=== PATIENT | male | born 1950 | race Caucasian/White ===

== ENCOUNTER → 2022-12-26 12:36 | Outpatient (BNVA) | payer MEDICARE, BC, SELFPAY | PROVIDERS: Visit Provider Nurse Practitioner Family | DX: R53.83 Other fatigue (principal); R17 Unspecified jaundice; N18.30 Chronic kidney disease, stage 3 unspecified; D63.1 Anemia in chronic kidney disease | CPT/HCPCS: 80053; 80069; 82652; 85018 ==